=== PATIENT | female | born 1995 | race Caucasian/White ===

== ENCOUNTER 2023-02-26 09:15 | Outpatient (CLI) | payer OTHER | END 2023-02-26 09:16 | disposition home or self-care (01) | LOC: CSHCT 09:15 | PROVIDERS: ATTEND Urology | DX: C64.1 Malignant neoplasm of right kidney, except renal pelvis (principal); R10.9 Unspecified abdominal pain; N39.0 Urinary tract infection, site not specified; Z90.5 Acquired absence of kidney | CPT/HCPCS: 74178 ==